=== PATIENT | male | born 1985 | race Caucasian/White ===

== ENCOUNTER → 2018-11-11 | Outpatient (CLI) | payer OTHER ==
--- NOTE | 2018-11-13 09:40 | REP ---
MRI LEFT KNEE: TECHNIQUE: Axial proton density fat saturation, sagittal proton density T2 STIR, water excitation, coronal proton density, proton density fat saturation. The menisci demonstrate no evidence of a tear. The cruciate and collateral ligaments are intact. The extensor mechanism is intact. There is mild diffuse chondromalacia of the femoral condyles. There is no bone marrow edema or occult fracture. There is a small joint effusion. Medial and lateral patellar retinacula are intact. There is a thin cartilaginous fissure in the lateral patellar facet. An oval benign enchondroma is seen in the distal femur slightly greater than 1 cm in maximum diameter. IMPRESSION: Mild chondromalacia of the femoral condyles. Thin fissure in the cartilage of the lateral patellar facet. Small joint effusion. Electronically Signed by Reed Trinidad MD 11/13/2018 06:40 P
== END ==
LOC: M RAD 13:57
PROVIDERS: ATTEND General Practice
DX: M94.262 Chondromalacia, left knee (principal); M25.562 Pain in left knee

== ENCOUNTER 2020-01-13 14:58 | Emergency (ER) | payer OTHER ==
[~2020-01-13] VITALS: Ht 170.2 cm; Wt 92.9 kg
[2020-01-13] MEDS ORDERED: PANT40TA29 PO (15:24)
[2020-01-13] MEDS ORDERED: IBUPROFEN 800 MG TAB PO ONE (16:15)
[2020-01-13] MEDS ORDERED: ACETAMINOPHEN 325 MG TAB PO ONE (16:15)
[2020-01-13 17:20] VITALS: BP 121/80
--- NOTE | 2020-01-14 09:06 | REP ---
REASON: Pain after trauma. There are no priors for comparison. There is fracture seen involving the base of the 5th metatarsal. This is imaged on the lateral view only. The ankle, itself, is without evidence of acute fracture or destructive osseous lesion. The mortise is intact. There does appear to be lateral soft tissue swelling, which should be correlated clinically. IMPRESSION: Fracture involving the base of the 5th metatarsal. Electronically Signed by Dominick Locke DO 01/14/2020 09:40 A
--- NOTE | 2020-01-14 09:35 | REP ---
REASON: Followup fracture base 5th metatarsal seen on the ankle series. There is a transverse fracture through the base of the 5th metatarsal minimally displaced. There are no additional fractures. Electronically Signed by Dominick Locke DO 01/14/2020 09:41 A
== END 2020-01-13 17:34 | disposition home or self-care (01) ==
LOC: M ED 14:58
DX: S92.351A Displaced fracture of fifth metatarsal bone, right foot, initial encounter for closed fracture (principal); X50.9XXA Other and unspecified overexertion or strenuous movements or postures, initial encounter; Y92.410 Unspecified street and highway as the place of occurrence of the external cause; Y93.67 Activity, basketball; K21.9 Gastro-esophageal reflux disease without esophagitis

== ENCOUNTER → 2020-12-30 | Outpatient (CLI) | payer OTHER ==
[~2020-12-30] MED LIST: PANT40TA29 PO
[2020-12-30 13:37] LABS: INR 0.96
[2020-12-30 13:38] LABS: PARTIAL THROMBOPLASTIN TIME 31.4 SECONDS (24.2-38.5)
== END ==
LOC: M LAB 12:04
PROVIDERS: ATTEND Physical Medicine & Rehabilitation
DX: M51.37 Other intervertebral disc degeneration, lumbosacral region (principal)

== ENCOUNTER → 2021-09-04 | Outpatient (REF) | LOC: M PLAIMG 08:51 | PROVIDERS: ATTEND Internal Medicine | DX: M19.90 Unspecified osteoarthritis, unspecified site (principal) ==